=== PATIENT | male | born 2005 | race Caucasian/White ===

== ENCOUNTER 2024-03-17 22:17 | Emergency (ER) | payer OTHER ==
[2024-03-17 22:23] VITALS: BP 137/74; PULSE 106; RESP 18; TEMP 98.7; BMI 19.8
== END 2024-03-18 01:35 | disposition home or self-care (01) ==
LOC: JERFT 22:17 → JER 22:17
DX: F12.90 Cannabis use, unspecified, uncomplicated (principal)
CPT/HCPCS: 71046-TC-FY; 93005; 93010; 99284-25